=== PATIENT | male | born 1975 ===

== ENCOUNTER 2017-04-28 11:10 | Inpatient (IN) | payer MEDICAID, OTHER ==
[2017-04-28] MEDS ORDERED: DiphenhydrAMINE 50 mg/ml Inj ONE (11:26)
[2017-04-28] MEDS ORDERED: DiphenhydrAMINE 50 mg/ml Inj IM STA (11:30)
--- NOTE | 2017-04-28 12:27 | RAD ---
HISTORY: Detox/Psy COMPARISON: None available. TECHNIQUE: Chest, one view. FINDINGS: Examination limited by habitus. LUNGS: Right hilar prominence of unclear significance. Subtle left lower lobe infiltrate or atelectasis. Please note that chest x-ray has limited sensitivity for the detection of pulmonary masses. PLEURA: No significant pleural effusion identified. No definite pneumothorax . CARDIOVASCULAR: Heart size appears within normal limits. OSSEOUS STRUCTURES: No acute osseous abnormality identified. VISUALIZED UPPER ABDOMEN: Unremarkable. OTHER FINDINGS: None. IMPRESSION: Right hilar prominence of unclear significance. Subtle left lower lobe infiltrate or atelectasis. Correlate clinically.
[2017-04-28 12:43] LABS: SQUAMOUS EPITHIAL 3 /hpf (0-5); URINE BACTERIA RARE (<OCC); URINE BILIRUBIN NEGATIVE (NEGATIVE); URINE BLOOD 1+ (NEGATIVE); URINE CLARITY Clear (Clear); URINE COLOR Yellow (YELLOW); URINE GLUCOSE (UA) NORMAL (Normal); URINE LEUKOCYTE ESTERASE NEG Leu/uL (Negative); URINE NITRATE NEGATIVE (NEGATIVE); URINE PROTEIN NEGATIVE (NEGATIVE); URINE UROBILINOGEN NORMAL mg/dL (0.2-1.0)
[2017-04-28 12:51] LABS: BARBITURATES, UR NEGATIVE (NEGATIVE)
[2017-04-28 12:52] LABS: BENZODIAZEPINES, UR NEGATIVE (NEGATIVE)
--- NOTE | 2017-04-28 12:52 | C.PDOC ---
History Of Present Illness Mayo Owens, a 41 year male, with no known psychiatric history is brought into the emergency department via EMS for auditory hallucinations and suicidal ideation. The patient states that his daughter a year ago and his mom was in a car accident and both situation have made him very stressed out and anxious. Denies drug and alcohol use. Denies headache, chest pain, nausea, vomiting, fever, chills. Time Seen by Provider: 04/28/17 11:13 Chief Complaint (Nursing): Psychiatric Evaluation History Per: Patient History/Exam Limitations: no limitations Associated Symptoms: Anxiety, Agitation, Suicidal Thoughts Past Medical History Reviewed: Historical Data, Nursing Documentation, Vital Signs Vital Signs: Last Vital Signs Temp 97.6 F 04/28/17 11:43 Pulse 65 04/28/17 13:10 Resp 14 04/28/17 13:10 BP 108/67 04/28/17 13:10 Pulse Ox 98 04/28/17 13:04 - Medical History PMH: Denies: Diabetes, Hepatitis, HIV, HTN, Seizures, Sexually Transmitted Disease Family History: States: Unknown Family Hx - Social History Hx Alcohol Use: No Hx Substance Use: No - Immunization History Hx Tetanus Toxoid Vaccination: No Hx Influenza Vaccination: No Hx Pneumococcal Vaccination: No Review Of Systems Constitutional: Negative for: Fever, Chills Cardiovascular: Negative for: Chest Pain Gastrointestinal: Negative for: Nausea, Vomiting, Diarrhea Psych: Positive for: Suicidal ideation Physical Exam - Physical Exam Appears: Well, Non-toxic Skin: Normal Color, Warm, Dry Head: Atraumatic, Normacephalic Nose: Normal Tongue: Normal Appearing Lips: Normal Appearing Teeth: Normal Dentition Throat: Normal Neck: Normal, Normal ROM, Supple Cardiovascular: Rhythm Regular Respiratory: Normal Breath Sounds, No Wheezing Gastrointestinal/Abdominal: Normal Exam, Soft, No Tenderness Back: Normal Inspection Male Genital: Normal Inspection Extremity: Normal ROM, No Tenderness, No Deformity, No Swelling Neurological/Psych: Oriented x3, Normal Speech ED Course And Treatment - Laboratory Results Result Diagrams: 04/28/17 12:47 04/28/17 12:47 O2 Sat by Pulse Oximetry: 98 (RA) Pulse Ox Interpretation: Normal Medical Decision Making Medical Decision Makin Initial Impression: 41 year old male presenting with suicidal ideations and auditory hallucinations Initial Plan: * EKG * Alcohol Serum * Comp Metabolic Panel * Drug Screen * CBC * CXR * Ativan * Benadry * Haldol 5mg IM * Urinalysis * Reevaluation Medical evaluation for clearance for psych and will be followed up by crisis team. Disposition Doctor Will See Patient In The: Hospital Counseled Patient/Family Regarding: Studies Performed - Disposition Disposition: HOSPITALIZED Disposition Time: 14:25 Condition: GUARDED Forms: [facility] (Austrian) - POA Present On Arrival: None - Clinical Impression Clinical Impression: Moderate major depression, single episode - Scribe Statement The provider has reviewed the documentation as recorded by the Maruibmarcial Arias All medical record entries made by the Maruibe were at my direction and personally dictated by me. I have reviewed the chart and agree that the record accurately reflects my personal performance of the history, physical exam, medical decision making, and the department course for this patient. I have also personally directed, reviewed, and agree with the discharge instructions and disposition. Decision To Admit - Pt Status Changed To: Hospital Disposition Of: Inpatient - Admit Certification Admit to Inpatient:: After my assessment, the patient will require hospitalization for at least two midnights. This is because of the severity of symptoms shown, intensity of services needed, and/or the medical risk in this patient being treated as an outpatient. - InPatient: Physician Admission Certification: I certify that this patient requires 2 or more midnights of care for the following reason:: needs inpatient psych - . Bed Request Type: Pediatrics Patient Diagnosis: Moderate major depression, single episode
[2017-04-28 12:54] LABS: OPIATES, UR NEGATIVE (NEGATIVE)
[2017-04-28 12:55] LABS: PHENCYCLIDINE, UR NEGATIVE (NEGATIVE)
[2017-04-28 12:58] LABS: BASO % 0.5 % (0.0-2.0); EOS # 0.2 K/uL (0.0-0.7); EOS % 2.1 % (0.0-4.0); HEMOGLOBIN 15.7 g/dL (12.0-18.0); LYMPH # 1.7 K/uL (1.0-4.3); MEAN CELL VOLUME 88.6 fL (80.0-94.0); MEAN CORPUSCULAR HEMOGLOBIN 29.6 pg (27.0-31.0); MEAN CORPUSCULAR HGB CONC 33.5 g/dL (33.0-37.0); MEAN PLATELET VOLUME 8.5 fL (7.2-11.7); MONO # 0.6 K/uL (0.0-0.8); MONO % 8.2 % (0.0-10.0); NEUT # 5.3 K/uL (1.8-7.0); NEUT % 67.2 % (50.0-75.0); NRBC % 0.2 % (0.0-2.0); RBC 5.3 Mil/uL (4.40-5.90); RED CELL DISTRIBUTION WIDTH 13.2 % (11.5-14.5); WHITE BLOOD COUNT 7.9 K/uL (4.8-10.8)
[2017-04-28 13:22] LABS: ALBUMIN 3.8 g/dL (3.5-5.0)
[2017-04-28 13:25] LABS: ALB/GLOB RATIO 1.1 (1.0-2.1); ALT/SGPT 100 U/L (21-72); AST/SGOT 71 U/L (17-59); BLOOD UREA NITROGEN 10 mg/dL (9-20); CALCIUM 8.6 mg/dl (8.6-10.4); GFR AFRICAN-AMERICAN > 60; GFR NON-AFRICAN AMERICAN > 60
[2017-04-28 15:29] VITALS: O2SAT 97
--- NOTE | 2017-04-28 17:21 | PCM.BM ---
<Zulma Ponce - Last Filed: 04/28/17 17:18> Treatment Plan Problems - Problems identified on initial assessmt Depression Date Initiated: 04/28/17 Time Initiated: 17:19 Assessment reference: NA Status: Active Suicidal Ideation Date Initiated: 04/28/17 Time Initiated: 17:19 Assessment reference: NA Status: Active Treatment assets and liabiliti Patient Assests: adapts well, cooperative, ADL independent, physically healthy, negotiates basic needs, cognitively intact Patient Liabilities: live alone (Live with mother), medical problems (Hx of DVT) , other (No drugs use) - Milieu Protocol Maintain good personal hygiene: daily Encourage regular showers, daily Remind patient to perform daily oral care Maintain personal safety: every shift Educate patient to report safety concerns to staff, every shift Monitor environment for contraband/sharps Medication safety: Monitor for expected outcome, potential side effects: every shift, Assess barriers to learning: every shift, Assess readiness for medication education: every shift <Mckenzie Monet - Last Filed: 04/29/17 10:54> Family Contact Family involvement: Family/SO is involved Family contact: Patient agrees to contact Family contact name: Girlfriend - Outside Agency Agency 1 Care involvment: Information-sharing Agency contact name: [facility] Agency contact number: - Goals for Treatment Patient goals for treatment: "I want to go back to my IOP program." Discharge/Continuing Care - Education Needs Education Needs: Patient Medication, Patient Coping Skills, Patient Community resources - Discharge Discharge Criteria: Tolerates medication w/o severe side effects, Free of Suicidal thoughts, No longer exhibiting s/s of withdrawal Discharge to:: Home, With Family - Treatment Team Participation Discussed with Family/SO: Yes Was Patient/Family/SO present at Treatment Team Meeting: Yes <Annamarie Marshall - Last Filed: 04/29/17 10:59> - Diagnosis (1) Severe manic bipolar 1 disorder with psychotic behavior Status: Acute Interventions: 04/29/17 11:00 Attend groups Take meds Depakote Trazodone (2) Opioid use disorder, moderate, dependence Status: Acute Interventions: 04/29/17 11:01 take meds attend groups (3) Opioid withdrawal Status: Acute Interventions: 04/29/17 11:02 Take meds Attend groups Methadone taper <Annelise Hayden - Last Filed: 04/29/17 11:24> Treatment assets and liabiliti Patient Assests: cooperative, self-reliant, physically healthy Patient Liabilities: relationship conflicts - Milieu Protocol Maintain good personal hygiene: daily Encourage regular showers Maintain personal safety: daily Educate patient to report safety concerns to staff Medication safety: Monitor for expected outcome, potential side effects: daily
--- NOTE | 2017-04-29 10:54 | PCM.PSYCH ---
Initial Psychiatric Evaluation - Initial Psychiatric Evaluation Type of Admission: Voluntary Legal Status: Capacity Chief Complaint (in patient's own words): I was feeling irritable and suicidal.' History of Present Illness and Precipitating Events: Patient is a 41 y.o. male admitted for depression and suicidal ideations. Patient has felt sad and had suicidal ideations for the past 3 days. Patient reports no past hospitalizations for psychiatric conditions. Patient reports he has never attempted suicide, but the urge is getting stronger. Patient says if he does attempt suicide, his plan would be to either hang himself, drive his car off a hill, or throw an electrical appliance in the shower while he is in the shower. Patient reports not hearing voices in head but does report racing thoughts for the past 2 weeks. Patient says as example, he would think about owing money to someone then girlfriend is coming home then about daughter. Patient reports being able to sleep only for an hour or two for the past 2 weeks because he has racing thoughts as he is trying to fall asleep. He also reports flight of ideas, poor concentration and poor attention. Patient says he paces, smokes cigarettes, and watches TV when not able to fall asleep. Patient reports using heroin every day for the past 2 to 3 weeks via snorting. Patient says when he uses heroin he does 2 bags of it and each bag costs $5. Patient says he knows using heroin is a temporary fix to his problems but uses it to feel better. Patient reports he has tried injecting heroin but did not like the feeling but he reports he did not suffer a reaction from the heroin injection. Patient reports having vomiting, diarrhea, and hot/cold sweats from heroin use. Patient reports last using heroin 2 days ago. Patient says he fears he will have withdrawal symptoms soon. Patient reports currently feeling restless and having joint and back pain. Patient denies alcohol or other drug use besides heroin. Patient says last episode of heroin use was 10 years ago before the most recent one. Patient is currently living with mother and girlfriend in [place]. Patient reports no problems with living situation currently. Patient says girlfriend is suspicious of his heroin use. Patient also has a 12 year old daughter. 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 Patient reports being hyperactive since childhood but has never met a doctor for it or been diagnosed with ADHD. Patient is currently not taking any medications. Patient says he has had migraine headaches for the past 4 months and is taking aspirin for the migraines. Patient is allergic to eggs. Patient is irritable and agitated. Patient reports suicidal ideations. Patient reports feeling groggy when he woke up today and believes it to be a side effect of medication. He reports at times hopeless and helpless. Past Medical History None Past Surgical History Patient does not remember name of surgery but from his description it was a possible CABG. Current Medications: Active Medications Generic Name Dose Route Start Last Admin Trade Name Freq PRN Reason Stop Dose Admin Acetaminophen 650 mg 04/28/17 16:26 Tylenol 325mg Tab PO Q6 PRN Fever >100.4 F Benztropine Mesylate 2 mg 04/28/17 16:26 Cogentin PO Q6 PRN Extra Pyramidal Symptoms Diphenhydramine HCl 50 mg 04/28/17 16:26 Benadryl PO Q6 PRN Extra Pyramidal Symptoms Haloperidol 5 mg 04/28/17 16:26 Haldol PO Q8 PRN Moderate Agitation Hydroxyzine HCl 25 mg 04/28/17 16:30 Atarax PO Q6 PRN Agitation Pneumococcal Polyvalent Vaccine 0.5 ml 05/01/17 10:00 Pneumovax 23 Vaccine IM 05/01/17 10:01 .ONCE ONE Trazodone HCl 50 mg 04/28/17 20:47 Desyrel PO HS PRN Insomnia Past Psychiatric History - Past Psychiatric History Previous Treatment History: None Pertinent Medical Hx (Current Medical&Sleep Prob, Allergies): Allergies Allergy/AdvReac Type Severity Reaction Status Date / Time peanut Allergy RASH Verified 04/28/17 11:21 No Known Home Med 04/28/17 Review of Systems - Review of Systems All systems: reviewed and no additional remarkable complaints except - Psychiatric Psychiatric: Anxiety, Irritability, Mood Swings, Suicidal Ideation Mental Status Examination - Personal Presentation Personal Presentation: Looks stated age - Affect Affect: Broad - Motor Activity Motor Activity: Psychomotor Agitation - Reliability in Providing Information Reliability in Providing Information: Poor, due to altered mood - Speech Speech: Organized - Formal Thought Process Formal Thought Process: Delusions, Paranoia, Flight of ideas - Hallucinations/Delusions Hallucinations: Auditory Delusions: Persecution - Obsessions/Compulsions Obsessions: No Compulsions: No - Cognitive Functions Orientation: Person, Place, Situation, Time Sensorium: Alert Attention/Concentration: Attentive Abstract Thinking: [place] Estimate of Intelligence: Below average Judgement: Imparied, as evidence by: Poor judgement, Imparied, as evidence by: Lack of insight into illness - Risk Risk: Suicidal, Withdrawal, Diminished functioning - Strength & Assets Inventory Strength & Assets Inventory: Family support DSM 5 DX - DSM 5 DSM 5 Diagnosis: Bipolar 1 disorder MRE mixed severe with psychotic features Opioid use disorder severe Opioid withdrawal - Recommended/Plan of Treatment Treatment Recommendations and Plan of Treatment: Bipolar 1 disorder MRE mixed severe with psychotic features CBT Psychoeducation Supportive therapy, group therapy, individual therapy Depakote 250 mg PO BID Neurontin 100 mg by mouth 3 times a day Trazodone 50 mg by mouth daily at bedtime Opioid use disorder severe CBT Psychoeducation Supportive therapy, individual therapy Use [place] for abstinence Opioid withdrawal CBT Psychoeducation Supportive therapy, individual therapy Clonidine when necessary Methadone taper - Smoking Cessation Smoking Cessation Initiated: No
[2017-04-29] MEDS: Divalproex 250 mg DR Tab PO SCH ×2 (11:25→17:19)
--- NOTE | 2017-04-29 12:34 | CARD ---
APPROVED REPORT EKG Measurement Heart [id number] <Conclusion> Normal sinus rhythm Normal ECG
[2017-04-29] MEDS ORDERED: Aluminum Hydroxide/Magnesium Hydroxide Susp (30 mL) PO PRN (18:27)
[2017-04-30] MEDS: Divalproex 250 mg DR Tab PO SCH ×2 (10:05→17:30)
--- NOTE | 2017-04-30 10:39 | PCM.PYCHPN ---
Psychiatric Progress Note - Psychiatric Progress Note Patient seen today, length of contact: 16 min Patient Chief Complaint: I still have racing of thoughts.' Problems Identified/Issues Discussed: Patient seen and evaluated, chart reviewed and discussed with the nurse. Patient reports a bit improvement in his mood but still reports irritability and agitation. He still reports racing of thoughts and anxiety. However, he denies any auditory or visual hallucinations. He is taking medication and denied any side effects. Supportive therapy and psychoeducation were given. Medication Change: Yes (methadone taper, d/c neurontin) Medical Record Reviewed: Yes Mental Status Examination - Cognitive Function Orientation: Person, Place, Situation, Time Memory: Intact Attention: WNL Concentration: Poor Association: WNL Fund of Knowledge: Poor - Mood Mood: Depressed, Anxious - Affect Affect: Broad - Speech Speech: Soft - Formal Thought Process Formal Thought Process: Flight of ideas - Suicidal Ideation Suicidal Ideation: No - Homicidal Ideation Homicidal Ideation: No Goal/Treatment Plan - Goal/Treatment Plan Need for Continued Stay: Discharge may exacerbated symptoms, Severe functional impairment Progress Toward Problem(s) and Goals/Treatment Plan: Bipolar 1 disorder MRE mixed severe with psychotic features CBT Psychoeducation Supportive therapy, group therapy, individual therapy Depakote 250 mg PO BID D/C Neurontin 100 mg by mouth 3 times a day Trazodone 50 mg by mouth daily at bedtime Opioid use disorder severe CBT Psychoeducation Supportive therapy, individual therapy Use [place] for abstinence Opioid withdrawal CBT Psychoeducation Supportive therapy, individual therapy Clonidine when necessary Methadone taper - Smoking Cessation Smoking Cessation Initiated: No
[2017-05-01] MEDS ORDERED: Pneumococcal 23-Valent Vaccine IM ONE (10:00)
[2017-05-01] MEDS: Divalproex 250 mg DR Tab PO SCH (10:08)
--- NOTE | 2017-05-01 10:50 | PCM.PYCHPN ---
Psychiatric Progress Note - Psychiatric Progress Note Patient seen today, length of contact: 16 min Patient Chief Complaint: I still have racing of thoughts.' Problems Identified/Issues Discussed: Patient seen and evaluated, chart reviewed and discussed with the nurse. Patient reports "doing better" compared to when he was first admitted. He still reports irritability and agitation. He reports improvement in the racing of thoughts and flights of ideas. Patient denies any physical complaints or heroin withdrawal symptoms currently. 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 He is taking medication and denied any side effects. Supportive therapy and psychoeducation were given. Medication Change: Yes (methadone taper, increase depakote) Medical Record Reviewed: Yes Mental Status Examination - Cognitive Function Orientation: Person, Place, Situation, Time Memory: Intact Attention: WNL Concentration: Poor Association: WNL Fund of Knowledge: Poor - Mood Mood: Depressed, Anxious - Affect Affect: Broad - Speech Speech: Soft - Formal Thought Process Formal Thought Process: Flight of ideas - Suicidal Ideation Suicidal Ideation: No - Homicidal Ideation Homicidal Ideation: No Goal/Treatment Plan - Goal/Treatment Plan Need for Continued Stay: Discharge may exacerbated symptoms, Severe functional impairment Progress Toward Problem(s) and Goals/Treatment Plan: Bipolar 1 disorder MRE mixed severe with psychotic features CBT Psychoeducation Supportive therapy, group therapy, individual therapy increase Depakote 500 mg PO BID increase Trazodone 100 mg by mouth daily at bedtime Opioid use disorder severe CBT Psychoeducation Supportive therapy, individual therapy Use [place] for abstinence Opioid withdrawal CBT Psychoeducation Supportive therapy, individual therapy Clonidine when necessary Methadone taper - Smoking Cessation Smoking Cessation Initiated: No
[2017-05-01] MEDS: Divalproex 500 mg DR Tab PO SCH (17:31)
[2017-05-02 08:09] VITALS: RESP 18
[2017-05-02] MEDS: Divalproex 500 mg DR Tab PO SCH ×2 (09:32→17:22)
--- NOTE | 2017-05-02 20:25 | PCM.PYCHPN ---
Psychiatric Progress Note - Psychiatric Progress Note Patient seen today, length of contact: 16 min Patient Chief Complaint: "I need to leave tomorrow" Problems Identified/Issues Discussed: The pt is seen, chart reviewed, case discussed with staff. Support given, CBT and NE used briefly No new symptoms reported, improving slowly and needs some more time No SEs from medications, risks discussed. 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 and that he wants to leave tomorrow Medication Change: No Medical Record Reviewed: Yes Mental Status Examination - Cognitive Function Orientation: Person, Place, Situation, Time Memory: Intact Attention: WNL Concentration: Poor Association: WNL Fund of Knowledge: Poor - Mood Mood: Depressed, Anxious - Affect Affect: Broad - Speech Speech: Soft - Formal Thought Process Formal Thought Process: No Impairment - Suicidal Ideation Suicidal Ideation: No - Homicidal Ideation Homicidal Ideation: No Goal/Treatment Plan - Goal/Treatment Plan Need for Continued Stay: Discharge may exacerbated symptoms, Severe functional impairment Progress Toward Problem(s) and Goals/Treatment Plan: Continue medications Support and psychoeducation daily Attend groups and activities daily DC likely tomorrow - confirmed with Dr Marshall
--- NOTE | 2017-05-03 08:17 | PCM.PYCHDC ---
Mental Status Examination - Mental Status Examination Orientation: Person, Place, Situation, Time Memory: Intact Mood: Anxious Affect: Constricted Speech: Appropriate Attention: WNL Concentration: WNL Association: WNL Fund of Knowledge: WNL Formal Thought Process: No Impairment Suicidal Ideation: No Current Homicidal Ideation?: No Discharge Summary - Discharge Note Consultations:: List each consultation separately and include: 1. Reason for request. 2. Findings. 3. Follow-up Summary of Hospital Course include:: 1. Description of specific treatment plan utilized for patients during their course of treatmen. 2. Summarize the time- course for resolution of acute symptoms and/or regressed behaviors. 3. Describe issues identified and worked on during hospitalization. 4. Describe medication utilized. 5. Describe medical problems identified and treated. 6. Reassessment of suicide risk Summary of Hospital Course: The pt was admitted and started on treatment with psychotherapy, support, psychoeducation and medications. [place] and CBT used. The pt attended groups and activities, as well as milieu therapy. All the risks and benefits of medications are discussed and the patient understood and agreed. After care discussed with the patient. The patient improved with the treatment provided and discharged as planned. - Final Diagnosis (DSM 5) Condition upon Discharge: IMPROVED DSM 5: Bipolar 1 disorder MRE mixed severe with psychotic features Opioid use disorder severe Opioid withdrawal Disposition: HOME/ ROUTINE Follow-up Treatment Plan: Continue below medications after discharge. Follow after care plan as discussed above. Use relapse prevention skills. Return to ER or call 911 if suicidal, homicidal or symptoms relapse. Stay away from stress, alcohol and drugs. Use relaxation techniques. See primary doctor once a year and get labs. Consider MAT - Smoking Cessation Smoking Cessation Medication prescribed: No - Antipsychotic Medications Pt discharged on 2 or more routine antipsychotic medications: No
[2017-05-03] MEDS: Divalproex 500 mg DR Tab PO SCH ×2 (09:23→10:06)
[2017-05-03 10:09] VITALS: BP 128/76; PULSE 85; TEMP 98.3
== END 2017-05-03 11:40 | disposition home or self-care (01) | DRG 430 ==
LOC: C.ER 11:10 → C.5E 14:26
PROVIDERS: ADMIT Psychiatry & Neurology Psychiatry; ATTEND Psychiatry & Neurology Psychiatry
PROC: GZ3ZZZZ Medication Management (ICD-10-PCS; principal; 2017-04-28)
PROC: HZ2ZZZZ Detoxification Services for Substance Abuse Treatment (ICD-10-PCS; 2017-04-28)
PROC: GZHZZZZ Group Psychotherapy (ICD-10-PCS; 2017-04-28)
PROC: HZ46ZZZ Group Counseling for Substance Abuse Treatment, Psychoeducation (ICD-10-PCS; 2017-04-28)
PROC: GZ56ZZZ Individual Psychotherapy, Supportive (ICD-10-PCS; 2017-04-28)
PROC: HZ59ZZZ Individual Psychotherapy for Substance Abuse Treatment, Supportive (ICD-10-PCS; 2017-04-28)
DX: F31.64 Bipolar disorder, current episode mixed, severe, with psychotic features (principal); F11.23 Opioid dependence with withdrawal; R45.851 Suicidal ideations; R44.0 Auditory hallucinations

== ENCOUNTER 2017-05-20 23:12 | Inpatient (IN) | payer MEDICAID, OTHER ==
--- NOTE | 2017-05-20 23:32 | C.PDOC ---
History Of Present Illness Patient shon in by family for psychotic behavior that started last night. He has a history of Bipolar disorder with psychotic features. He has been on Depakote in the past but is not currently on any medication. His states that his daughter and he occasionally has breaks like this when her memory is triggered. He had a recent psychiatric hospitalization for hallucinations and suicidal ideation. He was discharged 05/03. He did have some heroin use prior to that admission. Time Seen by Provider: 05/20/17 23:24 Chief Complaint (Nursing): Psychiatric Evaluation History Per: Patient, Family History/Exam Limitations: no limitations Onset/Duration Of Symptoms: Days (1) Current Symptoms Are (Timing): Still Present Suicide/Self Injury Attempted (Context): None Associated Symptoms: Agitation, Depression Additional History Per: Past Medical History Vital Signs: Last Vital Signs Temp 98.2 F 05/20/17 23:22 Pulse 68 05/20/17 23:22 Resp 16 05/20/17 23:22 BP 124/84 05/20/17 23:22 Pulse Ox 100 05/20/17 23:39 - Medical History PMH: Bipolar Disorder, Depression Surgical History: No Surg Hx - [facility] Procedures DETOXIFICATION SERVICES FOR SUBSTANCE ABUSE TREATMENT (04/28/17) GROUP TELEPHONE RECORDER FOR SUBSTANCE ABUSE TREATMENT, PSYCHOEDUCATION (04/28/17) GROUP PSYCHOTHERAPY (04/28/17) INDIV PSYCHOTHERAPY FOR SUBSTANCE ABUSE TREATMENT, SUPPORT (04/28/17) INDIVIDUAL PSYCHOTHERAPY, SUPPORTIVE (04/28/17) MEDICATION MANAGEMENT (04/28/17) Family History: States: Unknown Family Hx - Social History Hx Alcohol Use: No Hx Substance Use: No - Immunization History Hx Tetanus Toxoid Vaccination: No Hx Influenza Vaccination: No Hx Pneumococcal Vaccination: No Review Of Systems Review Of Systems: ROS cannot be obtained secondary to pt's inabilty to answer questions. Physical Exam - Physical Exam Appears: Agitated (restless, shuffling side to side.) Skin: Normal Color, Warm, Dry, No Diaphoretic Head: Atraumatic, Normacephalic Eye(s): bilateral: Normal Inspection, PERRL, EOMI Oral Mucosa: Moist Neck: Normal Chest: Symmetrical Cardiovascular: Rhythm Regular Respiratory: Normal Breath Sounds Gastrointestinal/Abdominal: Soft, No Tenderness Extremity: Normal ROM Extremity: Bilateral: Atraumatic Pulses: Left Carotid: Normal, Right Carotid: Normal Neurological/Psych: No Oriented x3, Normal Speech, No Normal Cognition, No Normal Cranial Nerves, Normal Motor, Normal Sensation, Normal Reflexes ED Course And Treatment O2 Sat by Pulse Oximetry: 100 Pulse Ox Interpretation: Normal Progress Note: 12:30 Patient agitated and refusing to allow blood draw for medical clearance. Medicated with Ativan and Haldol. Awaiting crisis evaluation. Disposition - Disposition Disposition Time: 00:52 Condition: FAIR Forms: [facility] (Peruvian) - Clinical Impression Clinical Impression: Severe manic bipolar 1 disorder with psychotic behavior Physician Patient Turnover Patient Signed Over To: Clive Nixon Handoff Comments: pending medical clearance for psychiatric admission.
[2017-05-21 01:19] LABS: BASO % 0.7 % (0.0-2.0); EOS # 0.2 K/uL (0.0-0.7); EOS % 2.7 % (0.0-4.0); HEMATOCRIT 44.9 % (35.0-51.0); LYMPH % 26.8 % (20.0-40.0); MEAN CELL VOLUME 88.5 fL (80.0-94.0); MEAN CORPUSCULAR HEMOGLOBIN 29.8 pg (27.0-31.0); MEAN CORPUSCULAR HGB CONC 33.6 g/dL (33.0-37.0); MEAN PLATELET VOLUME 8.5 fL (7.2-11.7); MONO # 0.7 K/uL (0.0-0.8); MONO % 9.8 % (0.0-10.0); NRBC % 0.2 % (0.0-2.0); RED CELL DISTRIBUTION WIDTH 13.1 % (11.5-14.5); WHITE BLOOD COUNT 7.4 K/uL (4.8-10.8)
[2017-05-21 01:26] LABS: CHLORIDE 101 mmol/L (98-107)
[2017-05-21 01:27] LABS: SODIUM 140 mmol/L (132-148)
[2017-05-21 01:28] LABS: RBC URINE 1 /hpf (0-3); URINE BACTERIA RARE (<OCC); URINE BILIRUBIN NEGATIVE (NEGATIVE); URINE BLOOD NEGATIVE (NEGATIVE); URINE COLOR Yellow (YELLOW); URINE GLUCOSE (UA) NORMAL (Normal); URINE KETONE NEGATIVE (NEGATIVE); URINE LEUKOCYTE ESTERASE NEG Leu/uL (Negative); URINE PROTEIN 1+ mg/dL (NEGATIVE); URINE UROBILINOGEN NORMAL mg/dL (0.2-1.0); WBC URINE 2 /hpf (0-5)
[2017-05-21 01:29] LABS: AST/SGOT 51 U/L (17-59); BILIRUBIN,TOTAL 0.7 mg/dL (0.2-1.3); CARBON DIOXIDE 26 mmol/L (22-30); GFR AFRICAN-AMERICAN > 60; TOTAL PROTEIN 7.5 g/dL (6.3-8.3)
[2017-05-21 01:30] LABS: ALCOHOL SERUM < 10 mg/dl (0-10); ALKALINE PHOSPHATASE 66 U/L (38-126); ALT/SGPT 85 U/L (21-72); BLOOD UREA NITROGEN 12 mg/dL (9-20); CALCIUM 8.9 mg/dl (8.6-10.4); GLUCOSE,RANDOM 120 mg/dL (75-110)
--- NOTE | 2017-05-21 05:18 | PCM.BM ---
<ChelseaRober - Last Filed: 05/21/17 05:15> Treatment Plan Problems - Problems identified on initial assessmt Schizoaffective D/O Date Initiated: 05/21/17 Time Initiated: 05:16 Assessment reference: NA Status: Active Suicidal Ideation Date Initiated: 05/21/17 Time Initiated: 05:18 Assessment reference: NA Status: Active Comment: S/I without plan. Audio Hallucination Date Initiated: 05/21/17 Time Initiated: 05:19 Assessment reference: NA Status: Active Comment: Voices telling him to hurt himself. Treatment assets and liabiliti Patient Assests: cooperative, self-reliant, ADL independent, physically healthy Patient Liabilities: financial problems, imparied memory, other (Jobless for a long time.) - Milieu Protocol Maintain good personal hygiene: daily Encourage regular showers, daily Remind patient to perform daily oral care, daily Assist patient to perform ADL's Maintain personal safety: every shift Educate patient to report safety concerns to staff, every shift Monitor environment for contraband/sharps Medication safety: Monitor for expected outcome, potential side effects: every shift, Assess barriers to learning: every shift, Assess readiness for medication education: every shift <Mckenzie Monet - Last Filed: 05/22/17 10:56> Family Contact Family involvement: Family/SO is involved Family contact: Patient declines to allow family contact at present - Goals for Treatment Patient goals for treatment: "I want to continue with outpatient program." Discharge/Continuing Care - Education Needs Education Needs: Patient Medication, Patient Coping Skills - Discharge Discharge Criteria: Tolerates medication w/o severe side effects, Reduction of target symptoms Discharge to:: Home, With Family - Treatment Team Participation Discussed with Family/SO: No Was Patient/Family/SO present at Treatment Team Meeting: Yes <Annamarie Marshall - Last Filed: 05/22/17 11:04> - Diagnosis (1) Schizoaffective disorder Status: Acute Interventions: 05/22/17 11:04 * Assess/adjust medications daily and /or as needed * See patient on an individual basis 7x/week to assess status of hallucinations * Discuss risks, benefits, side effects and alternatives of medications (2) Opioid use disorder, moderate, dependence Status: Acute Interventions: 05/22/17 11:04 * Assess 7x/week regarding severity of withdrawal * Educate regarding risks, benefits, side effects and alternatives of medications * Use Motivational Interviewing for abstinence * Use CBT for relapse prevention * Medication management for withdrawal symptoms * Encourage medication assisted treatment
--- NOTE | 2017-05-21 12:02 | PCM.PSYCH ---
Initial Psychiatric Evaluation - Initial Psychiatric Evaluation Type of Admission: Voluntary Legal Status: Capacity Chief Complaint (in patient's own words): "I feel depressed." History of Present Illness and Precipitating Events: The pt is seen, chart reviewed, case discussed with staff. A 41 yo male was brought into the ED by his family for psychotic behavior last night. He is currently lethargic, unresponsive, and guarded. The patient is a poor historian. The patient reports feeling depressed. He admits to sudden changes in mood and racing thoughts. He denies anxiety, suicidal or homicidal ideation's, hearing voices, or any hallucinations. The patient reports not sleeping well and that he constantly can't stay focused. The patient was previously admitted to [facility] (Former[facility]) for episodes of severe depression and being "stressed out". In the past month, he was admitted for psychiatric hospitalization for hallucinations and suicidal ideation's, and discharged on 05/03. He reports having these episodes off and on and reports that his worst episode was last night. He reports that these episodes are triggered when he thinks about his mother who has breast cancer and his daughters . He was prescribed Depakote in the past but reports that he is currently not taking it, for unspecified reasons. The patient admits to doing heroin, via snorting, 3-4 bags/day, on and off for the past 7-8 years.He reports getting heroin from his friends. He denies all other drugs, and admits to smoking 1 pack/day of tobacco. The patient is not currently experiencing any withdrawal symptoms. 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 Family Hx: Mother was diagnosed with breast cancer, patient states that it contributes to his depression. Family Psychiatric Hx: none reported Past Medical Hx: none reported Current Medications: Active Medications Generic Name Dose Route Start Last Admin Trade Name Freq PRN Reason Stop Dose Admin Divalproex Sodium 250 mg 05/21/17 18:00 Depchantel Richard Tab PO BID NELDA Divalproex Sodium 250 mg 05/21/17 11:[address] PO 05/21/17 11:57 STAT STA Past Psychiatric History - Past Psychiatric History Previous Treatment History: Inpatient Pertinent Medical Hx (Current Medical&Sleep Prob, Allergies): Allergies Allergy/AdvReac Type Severity Reaction Status Date / Time peanut Allergy RASH Verified 05/20/17 23:25 Divalproex [Depakote DR] 500 mg PO BID #60 tcp 05/03/17 Famotidine [Pepcid] 20 mg PO BID #60 tab 05/03/17 traZODone [Desyrel] 100 mg PO HS PRN #30 tab 05/03/17 Review of Systems - Review of Systems All systems: reviewed and no additional remarkable complaints except - Psychiatric Psychiatric: Anxiety, Auditory Hallucinations, Irritability, Paranoia, Suicidal Ideation, Visual Hallucinations Mental Status Examination - Personal Presentation Personal Presentation: Looks older than stated age - Affect Affect: Constricted, Depressed - Motor Activity Motor Activity: Calm - Reliability in Providing Information Reliability in Providing Information: Poor, due to altered mood - Speech Speech: Disorganized - Mood Mood: Depressed, Anxious - Formal Thought Process Formal Thought Process: Hallucinations, Delusions, Paranoia, Loosening of associations - Hallucinations/Delusions Hallucinations: Visual, Auditory Delusions: Persecution - Obsessions/Compulsions Obsessions: No Compulsions: No - Cognitive Functions Orientation: Person, Place, Situation, Time Sensorium: Alert Attention/Concentration: Attentive Abstract Thinking: [place] Estimate of Intelligence: Below average Judgement: Imparied, as evidence by: Poor judgement, Imparied, as evidence by: Lack of insight into illness - Risk Risk: Suicidal, Withdrawal, Diminished functioning DSM 5 DX - DSM 5 DSM 5 Diagnosis: Schizoaffective disorder bipolar type Opiate use disorder severe Opiate withdrawal - Recommended/Plan of Treatment Treatment Recommendations and Plan of Treatment: Schizoaffective disorder bipolar type CBT Psychoeducation Supportive therapy, group therapy, individual therapy Depakote 250 mg g by mouth twice a day Trazodone 50 mg by mouth daily at bedtime Opioid use disorder severe Opioid withdrawal CBT Psychoeducation Supportive therapy, individual therapy Use [place] for abstinence Clonidine when necessary Methadone taper - Smoking Cessation Smoking Cessation Initiated: No
[2017-05-21] MEDS ORDERED: Divalproex 250 mg DR Tab PO STA (12:11)
[2017-05-21] MEDS: Divalproex 250 mg DR Tab PO SCH (17:45)
[2017-05-22] MEDS: Divalproex 250 mg DR Tab PO SCH (09:39)
--- NOTE | 2017-05-22 09:59 | PCM.PYCHPN ---
Psychiatric Progress Note - Psychiatric Progress Note Patient seen today, length of contact: 15 min Patient Chief Complaint: "I feel depressed." Problems Identified/Issues Discussed: Patient seen and evaluated, chart reviewed and discussed with the nurse. Patient remained disorganized and internally preoccupied. Patient remained isolated, confined and withdrawn. He still reports of hearing voices. Patient still appears paranoid and delusional. He reports depressed mood and feelings of hopelessness and helplessness. He reports withdrawal symptoms including cramps, sweating, headaches anxiety. But remained isolated and withdrawn. He is taking medication and denies any side effects. Supportive therapy and psychoeducation were given. Medication Change: Yes (Start Haldol) Medical Record Reviewed: Yes Mental Status Examination - Cognitive Function Orientation: Person, Place, Situation, Time Memory: Intact Attention: WNL Concentration: Poor Association: Loose Fund of Knowledge: Poor - Mood Mood: Depressed, Anxious - Affect Affect: Constricted, Depressed - Speech Speech: Soft - Formal Thought Process Formal Thought Process: Hallucinations, Delusions, Paranoia, Loosening of associations - Suicidal Ideation Suicidal Ideation: No - Homicidal Ideation Homicidal Ideation: No Goal/Treatment Plan - Goal/Treatment Plan Need for Continued Stay: Severe depression anxiety, Failed transitioning Progress Toward Problem(s) and Goals/Treatment Plan: Schizoaffective disorder bipolar type CBT Psychoeducation Supportive therapy, group therapy, individual therapy Depakote 250 mg g by mouth twice a day Trazodone 50 mg by mouth daily at bedtime Haldol 5 mg PO BID Opioid use disorder severe Opioid withdrawal CBT Psychoeducation Supportive therapy, individual therapy Use [place] for abstinence Clonidine when necessary Methadone taper - Smoking Cessation Smoking Cessation Initiated: No
[2017-05-22] MEDS: Divalproex 500 mg DR Tab PO SCH (18:33)
[2017-05-23] MEDS: Divalproex 500 mg DR Tab PO SCH ×2 (09:31→18:26)
--- NOTE | 2017-05-23 10:48 | PCM.PYCHPN ---
Psychiatric Progress Note - Psychiatric Progress Note Patient seen today, length of contact: 17 min Patient Chief Complaint: "I m feeling depressed." Problems Identified/Issues Discussed: Patient seen and evaluated, chart reviewed and discussed with the nurse. As per the staff, patient appeared more organized and less internally preoccupied, than yesterday. Patient reports irritability, anxiety and agitation. He reports depressed mood and remained isolated and withdrawn. He reports somewhat improvement in the racing of thoughts and flight of ideas. He still reports hearing voices and still appears paranoid and delusional. He is taking medications and denies any side effects. He needs more time for stabilization. Supportive therapy and psychoeducation were given. Medication Change: Yes (increase depakote) Medical Record Reviewed: Yes Mental Status Examination - Cognitive Function Orientation: Person, Place, Situation, Time Memory: Intact Attention: WNL Concentration: Poor Association: Loose Fund of Knowledge: WNL - Mood Mood: Depressed, Anxious - Affect Affect: Constricted, Depressed - Speech Speech: Soft - Formal Thought Process Formal Thought Process: Hallucinations, Delusions, Paranoia, Loosening of associations - Suicidal Ideation Suicidal Ideation: No - Homicidal Ideation Homicidal Ideation: No Goal/Treatment Plan - Goal/Treatment Plan Need for Continued Stay: Discharge may exacerbated symptoms, Severe functional impairment Progress Toward Problem(s) and Goals/Treatment Plan: Schizoaffective disorder bipolar type CBT Psychoeducation Increase Depakote 500 mg g by mouth twice a day Trazodone 50 mg by mouth daily at bedtime Haldol 5 mg PO BID Opioid use disorder severe Opioid withdrawal CBT Psychoeducation Supportive therapy, individual therapy Use [place] for abstinence Clonidine when necessary Methadone taper - Smoking Cessation Smoking Cessation Initiated: No
[2017-05-24] MEDS: Divalproex 500 mg DR Tab PO SCH ×2 (09:25→17:51)
--- NOTE | 2017-05-24 11:47 | PCM.PYCHPN ---
Psychiatric Progress Note - Psychiatric Progress Note Patient seen today, length of contact: 16 min Patient Chief Complaint: "I been feeling little better Problems Identified/Issues Discussed: Patient seen and evaluated, chart reviewed and discussed with the nurse. Patient appeared more organized and less internally preoccupied. Patient reports irritability, anxiety and agitation. He reports somewhat improvement in the racing of thoughts and flight of ideas. He reports improvement in the voices. Patient still appears paranoid and delusional. He reports improvement in his depressed mood but remained isolated and withdrawn, denies any suicidal ideation or homicidal ideation. He is taking medications and denies any side effects. He needs more time for stabilization. Supportive therapy and psychoeducation were given. Medication Change: Yes (increase haldol, d/c neurontin) Medical Record Reviewed: Yes Mental Status Examination - Cognitive Function Orientation: Person, Place, Situation, Time Memory: Intact Attention: WNL Concentration: Poor Association: WNL Fund of Knowledge: Poor - Mood Mood: Depressed, Anxious - Affect Affect: Constricted, Depressed - Speech Speech: Soft - Formal Thought Process Formal Thought Process: Hallucinations, Delusions, Paranoia - Suicidal Ideation Suicidal Ideation: No - Homicidal Ideation Homicidal Ideation: No Goal/Treatment Plan - Goal/Treatment Plan Need for Continued Stay: Discharge may exacerbated symptoms, Severe functional impairment Progress Toward Problem(s) and Goals/Treatment Plan: Schizoaffective disorder bipolar type CBT Psychoeducation Depakote 500 mg by mouth twice a day Trazodone 100 mg by mouth daily at bedtime Haldol 10 mg PO BID D/C Gabapentin 100 mg po TID Opioid use disorder severe Opioid withdrawal CBT Psychoeducation Supportive therapy, individual therapy Use [place] for abstinence Clonidine when necessary Methadone taper - Smoking Cessation Smoking Cessation Initiated: No
[2017-05-25 08:22] VITALS: RESP 20; O2SAT 99
[2017-05-25] MEDS: Divalproex 500 mg DR Tab PO SCH ×2 (09:02→17:29)
--- NOTE | 2017-05-25 16:38 | PCM.PYCHPN ---
Psychiatric Progress Note - Psychiatric Progress Note Patient seen today, length of contact: 16 min Patient Chief Complaint: "I can't really focus on one thing." Problems Identified/Issues Discussed: Patient seen and evaluated, chart reviewed and discussed with the nurse. Patient is a 41 y/o male with complaint of panic attack, depression, opiate use , and racing thoughts. He complains of his "mind wondering everywhere and having multiple thoughts" despite being "consciously there." He seems irritated and withdrawn. He reports of having flight of ideas. He denies having withdrawal symptoms, denies homicidal ideation and suicidal ideation, and denies having auditory or visual hallucinations. His mood varies day to day, feeling "okay" one day and "fatigued and irritable" on the other. He feels angry rather than guilty about past events. He is taking medications and denies any side effects. He needs more time for stabilization. Supportive therapy and psychoeducation were given. Medication Change: Yes (increase haldol, d/c neurontin) Medical Record Reviewed: Yes Mental Status Examination - Cognitive Function Orientation: Person, Place, Situation, Time Memory: Intact Attention: WNL Concentration: WNL Association: WN Fund of Knowledge: Poor - Mood Mood: Anxious - Affect Affect: Constricted - Speech Speech: Soft - Formal Thought Process Formal Thought Process: No Impairment - Suicidal Ideation Suicidal Ideation: No - Homicidal Ideation Homicidal Ideation: No Goal/Treatment Plan - Goal/Treatment Plan Need for Continued Stay: Discharge may exacerbated symptoms, Severe functional impairment Progress Toward Problem(s) and Goals/Treatment Plan: Schizoaffective disorder bipolar type CBT Psychoeducation Depakote 500 mg by mouth twice a day Trazodone 100 mg by mouth daily at bedtime Haldol 10 mg PO BID Opioid use disorder severe Opioid withdrawal CBT Psychoeducation Supportive therapy, individual therapy Use [place] for abstinence Clonidine when necessary Methadone taper - Smoking Cessation Smoking Cessation Initiated: No
[2017-05-26 07:40] VITALS: BP 102/59; PULSE 33; TEMP 97.9
--- NOTE | 2017-05-26 09:42 | PCM.PYCHDC ---
Mental Status Examination - Mental Status Examination Orientation: Person, Place, Situation, Time Memory: Intact Mood: Neutral Affect: Constricted Speech: Soft Attention: WNL Concentration: WNL Association: WNL Fund of Knowledge: WNL Formal Thought Process: No Impairment Description of patient's judgement and insight: good, fair Psychotic Thoughts and Behaviors: denies any AVH Suicidal Ideation: No Current Homicidal Ideation?: No Discharge Summary - Discharge Note Reason for Hospitalization: A 41 yo male was brought into the ED by his family for psychotic behavior last night. He is currently lethargic, unresponsive, and guarded. The patient is a poor historian. The patient reports feeling depressed. He admits to sudden changes in mood and racing thoughts. He denies anxiety, suicidal or homicidal ideation's, hearing voices, or any hallucinations. The patient reports not sleeping well and that he constantly can't stay focused. The patient was previously admitted to [facility] for episodes of severe depression and being "stressed out". In the past month, he was admitted for psychiatric hospitalization for hallucinations and suicidal ideation's, and discharged on 05/03. He reports having these episodes off and on and reports that his worst episode was last night. He reports that these episodes are triggered when he thinks about his mother who has breast cancer and his daughters . He was prescribed Depakote in the past but reports that he is currently not taking it, for unspecified reasons. The patient admits to doing heroin, via snorting, 3-4 bags/day, on and off for the past 7-8 years.He reports getting heroin from his friends. He denies all other drugs, and admits to smoking 1 pack/day of tobacco. The patient is not currently experiencing any withdrawal symptoms. Consultations:: List each consultation separately and include: 1. Reason for request. 2. Findings. 3. Follow-up Summary of Hospital Course include:: 1. Description of specific treatment plan utilized for patients during their course of treatmen. 2. Summarize the time- course for resolution of acute symptoms and/or regressed behaviors. 3. Describe issues identified and worked on during hospitalization. 4. Describe medication utilized. 5. Describe medical problems identified and treated. 6. Reassessment of suicide risk Summary of Hospital Course: During the course of his stay, patient (pt) started progressively improving and he no longer remained irritable, depressed, and suicidal. His mood was improved and he started attending groups and meetings and started socializing. Patient denied any feelings of hopelessness, helplessness, and worthlessness, denied any problem with the sleep or appetite, denied suicidal ideation or homicidal ideation. Pt denied any auditory or visual hallucinations. Some changes were made in his current medications and patient was discharged on following medications. He tolerated these medications very well and denied any side effects. CBT and MO were used. - Diagnosis (1) Schizoaffective disorder Status: Acute (2) Opioid use disorder, moderate, dependence Status: Acute - Final Diagnosis (DSM 5) Condition upon Discharge: FAIR DSM 5: Schizoaffective disorder bipolar type Opioid use disorder severe Opioid withdrawal Disposition: HOME/ ROUTINE Follow-up Treatment Plan: Education: Pt was educated and counseled about the risks and benefits of taking and not taking medications. Pt was educated and counseled about the risks of drinking and abusing drugs. Pt was educated and counseled to go to the ER or call 911 if pt develop suicidal ideation or homicidal ideation, worsening of symptoms or severe side effects of the meds. Prescriptions/Medication Reconciliation: Benztropine [Cogentin] 2 mg PO BID #60 tab cloNIDine [Catapres] 1 mg PO BID PRN #60 tab PRN Reason: Opiate Reversal Divalproex [Depakote DR] 500 mg PO BID #30 tcp Haloperidol [Haldol] 10 mg PO BID #60 tab traZODone [Desyrel] 100 mg PO HS #30 tab - Smoking Cessation Smoking Cessation Medication prescribed: No - Antipsychotic Medications Pt discharged on 2 or more routine antipsychotic medications: No
[2017-05-26] MEDS: Divalproex 500 mg DR Tab PO SCH (09:50)
== END 2017-05-26 10:30 | disposition home or self-care (01) | DRG 744 ==
LOC: C.ER 23:12 → C.5E 05-21 03:48
PROVIDERS: ADMIT Psychiatry & Neurology Psychiatry; ATTEND Psychiatry & Neurology Psychiatry
PROC: HZ2ZZZZ Detoxification Services for Substance Abuse Treatment (ICD-10-PCS; principal; 2017-05-21)
PROC: HZ52ZZZ Individual Psychotherapy for Substance Abuse Treatment, Cognitive-Behavioral (ICD-10-PCS; 2017-05-21)
PROC: HZ42ZZZ Group Counseling for Substance Abuse Treatment, Cognitive-Behavioral (ICD-10-PCS; 2017-05-21)
PROC: HZ59ZZZ Individual Psychotherapy for Substance Abuse Treatment, Supportive (ICD-10-PCS; 2017-05-21)
PROC: HZ56ZZZ Individual Psychotherapy for Substance Abuse Treatment, Psychoeducation (ICD-10-PCS; 2017-05-21)
PROC: HZ46ZZZ Group Counseling for Substance Abuse Treatment, Psychoeducation (ICD-10-PCS; 2017-05-21)
DX: F11.23 Opioid dependence with withdrawal (principal); F25.0 Schizoaffective disorder, bipolar type; R45.851 Suicidal ideations; F17.200 Nicotine dependence, unspecified, uncomplicated; F41.9 Anxiety disorder, unspecified

== ENCOUNTER 2017-11-16 23:23 | Emergency (ER) | payer MEDICAID, OTHER ==
[2017-11-16 23:58] VITALS: BP 134/77; PULSE 77; TEMP 98; O2SAT 97
--- NOTE | 2017-11-17 01:04 | C.PDOC ---
History Of Present Illness Pt c/o of atraumatic pain and swelling to right knee x 3 days. Pt did not take any OTC meds. Denies past trauma or injuries to same knee. Pt denies weakness or numbness Time Seen by Provider: 11/17/17 00:27 Chief Complaint (Nursing): Lower Extremity Problem/Injury History Per: Patient History/Exam Limitations: no limitations Current Symptoms Are (Timing): Still Present Severity: Moderate Pain Scale Rating Of: 8 - Knee Alleviating Factor(s): Ice Therapy. denies: OTC Pain Medication Past Medical History Vital Signs: Last Vital Signs Temp 98.0 F 11/16/17 23:54 Pulse 77 11/16/17 23:54 Resp 20 11/17/17 01:12 BP 134/77 11/16/17 23:54 Pulse Ox 97 11/17/17 01:04 - Medical History PMH: Bipolar Disorder, Depression Denies: Diabetes, Hepatitis, HIV, HTN, Seizures, Sexually Transmitted Disease - [facility] Procedures DETOXIFICATION SERVICES FOR SUBSTANCE ABUSE TREATMENT (07/29/17) GROUP GIS DEVELOPER FOR SUBSTANCE ABUSE TREATMENT, PSYCHOEDUCATION (07/29/17) GROUP GIS DEVELOPER FOR SUBSTANCE ABUSE, COGNITIVE BEHAVIORAL (05/21/17) GROUP PSYCHOTHERAPY (04/28/17) INDIV PSYCHOTHERAPY FOR SUBSTANCE ABUSE TREATMENT, SUPPORT (07/29/17) INDIV PSYCHOTHERAPY FOR SUBSTANCE ABUSE, COGNITIV BEHAVIORAL (05/21/17) INDIV PSYCHOTHERAPY FOR SUBSTANCE ABUSE, PSYCHOEDUCATION (05/21/17) INDIVIDUAL PSYCHOTHERAPY, SUPPORTIVE (04/28/17) MEDICATION MANAGEMENT (07/29/17) Family History: States: Unknown Family Hx - Social History Hx Alcohol Use: No Hx Substance Use: Yes - Immunization History Hx Tetanus Toxoid Vaccination: No Hx Influenza Vaccination: No Hx Pneumococcal Vaccination: No Review Of Systems Musculoskeletal: Positive for: Other (right knee pain) Neurological: Negative for: Weakness, Numbness Physical Exam - Physical Exam Appears: Well, Non-toxic Eye(s): bilateral: Normal Inspection Extremity: Normal ROM, Tenderness (minimal to anterior right knee), No Deformity , Swelling (minimal swelling, no gross effusion, no warmth) Extremity: Bilateral: Atraumatic, Normal Color And Temperature Neurological/Psych: Oriented x3, Normal Motor, Normal Sensation Gait: Steady ED Course And Treatment O2 Sat by Pulse Oximetry: 97 Progress Note: Toradol IM ordered. Pt placed in a knee brace and advised follwo up with PMD- D/c on PO naproxen. Return precuationd d/w pt who undrstands and agreed with plan Disposition Counseled Patient/Family Regarding: Diagnosis, Need For Followup, Rx Given - Disposition Referrals: Donn Chau MD [Staff Provider] - Disposition: HOME/ ROUTINE Disposition Time: 01:02 Condition: STABLE Additional Instructions: Leg elevation Take meds as directed Follow up with PMD Return to ER if worse Prescriptions: Naproxen [Naprosyn] 1 tab PO BID PRN #25 tab PRN Reason: Pain Instructions: Knee Pain Forms: [email or web address] (Romanian) - Clinical Impression Clinical Impression: Knee pain, right
[2017-11-17 01:13] VITALS: RESP 20
== END 2017-11-17 01:12 | disposition home or self-care (01) ==
LOC: C.ER 23:23
DX: M25.561 Pain in right knee (principal)
CPT/HCPCS: 96372; 99284; J1885